=== PATIENT | male | born 1935 | race Caucasian/White ===

== ENCOUNTER 2017-03-06 01:35 | Day surgery (SDC) | payer MEDICARE, OTHER ==
[~2017-03-06] VITALS: Ht 170.2 cm; Wt 69.0 kg
[2017-03-06] VITALS (10 sets, daily range): BP systolic 128–159; BP diastolic 77–98; PULSE 61–70; RESP 13–16; O2SAT 96–98
[~2017-03-06 01:35] MED LIST: ALLO300T2 PO; ASPI-973 PO; INDA2.5T2 PO; LISI40TA PO; POTA10TA7 PO; SIMV10TA4 PO
[2017-03-06] MEDS ORDERED: EPHEDrine/NS 5 mg/mL 5 mL Syringe ONE (01:36)
[2017-03-06] MEDS ORDERED: Ondansetron 2 mg/mL 2 mL Inj ONE (01:36)
[2017-03-06] MEDS ORDERED: Glycopyrrolate 0.2 MG/ML 1mL Inj ONE (01:36)
[2017-03-06] MEDS ORDERED: Propofol 10,000 mCg/mL 20 mL Inj ONE (01:36)
[2017-03-06] MEDS ORDERED: Succinylcholine Chloride 20 mg/mL 5 mL Inj ONE (01:36)
[2017-03-06] MEDS ORDERED: Ketamine 10 mg/mL 20 mL Inj ONE (01:36)
[2017-03-06] MEDS ORDERED: Phenylephrine 10,000 mCg/mL Inj ONE (01:36)
[2017-03-06] MEDS ORDERED: fentaNYL-PF 50 mCg/mL 2 mL Inj ONE (01:36)
[2017-03-06] MEDS ORDERED: Glucagon 1 mg/mL Inj ONE ×3 (01:36)
[2017-03-06] MEDS ORDERED: Lactated Ringer's 1,000 ML IV ONE (06:00)
--- NOTE | 2017-03-06 13:55 | PCM.HPANE ---
Patient Data Date of Service: March 06, 2017 Surgeon Admitting Provider: Attending Provider:Hema Echeverria MD Primary Care Physician:Butch Saldana MD Other Provider:Martinez Thompson Anesthesia Reason for Visit K86.9 Pancreatic Mass Ht/WT & BMI Height (Feet): 5 Height (Inches): 7 Weight (Kilograms): 69 Body Mass Index 23.00 Allergies Coded Allergies: Penicillins (Verified Allergy, Severe, hives, 03/06/17) Past Anesthesia History Anesthesia History: Denies:: Abnormal Airway, Anesthesia Reactions, Difficult Intubation, Fam Anesthesia Reaction, Fam Malignant Hypertherm, Malignant Hyperthermia Diabetes History Hx Diabetes?: No MRSA MRSA: No Medications Blood Thinner: Aspirin Last Dose Blood Thinner: March 05, 2017 Hypertension Medication: Yes Home Meds Incl Beta Sydni: No Reported Medications Aspirin 81 Mg [id number] Mg PO DAILY Ref 0 02/26/16 Potassium Chloride ER (Klor-Con 10)10 Meq Gqjvsj86 Meq PO DAILY Ref 0 02/26/16 Simvastatin 10 Mg [id number] Mg PO HS Ref 0 02/26/16 Indapamide 2.5 Mg Tablet2.5 Mg PO DAILY #30 TABLET 02/26/16 Lisinopril 40 Mg Stnygh13 Mg PO DAILY 30 Days Ref 0 02/26/16 Allopurinol 300 Mg [id number] Mg PO DAILY Ref 0 02/26/16 History History of ENT Problems?: Yes HEENT History: Positive for:: Hearing Problem Denies:: Abnormal Airway Difficult Intubation Dysphagia Denture Type: None Teeth Condition: Within Normal Limits Hx of Heart Problems?: No Cardiovascular History: Positive for:: Atrial Fibrillation Hypertension Denies:: AICD Chest Pain Pacemaker Valvular Heart Disease Hx of Respiratory Problem?: No Respiratory History: Denies:: Asthma COPD Cough Hemoptysis Pneumonia Tuberculosis Hx Neurologic Problems?: No Neurological History: Denies:: CVA Hx of GI Problems?: Yes Hx of Problems?: Yes Other History/Comment Renal insufficiency - GFR 50s Hx Musculoskeletal Problems?: No Musculoskeletal History: Denies:: Joint Replacement Hx of Psycho/Social Problems?: No Psycho Social History: Denies:: Anxiety Hx Depression Hx Surgeries?: Yes (Bilat Ing Hernias, Prostate Ca, Lumbar Lami, Cataracts) Hx Any Other Health Problems?: No Hx Diabetes: No Hx Alcohol Use: No Smoking Status: Former Smoker Stop/Bang Treated for Sleep Apnea?: No S-Snoring: Do You Snore Loudly: No T-Tired: feel tired, fatigued: No O-Obsered: Observed not breath: No P-Blood Pressure: treated: Yes B- Body Mass Index > 35 kg/m2: No A- Age over 50: Yes N- Neck Large Circumference: No G- Gender Male: Yes FABIÁN Total Score: 3 FABIÁN Risk Assessment: Low Risk, <3 Yes Risk Assessment Category Category 1A: Patient has history of documented sleep apnea, and HAS NOT received any narcotic, sedative or anesthesia administration during this stay. Category 1B: Patient has history of documented sleep apnea, and HAS received any narcotic , sedative or anesthesia administration during this stay Category 2: Patient has SUSPECTED Obstructive Sleep Apnea, and HAS received any narcotic , sedative or anesthesia administration during this stay. Category 3: Patient has SUSPECTED Obstructive Sleep Apnea and HAS NOT received narcotic, sedative or anesthesia administration during this stay. Category 4: Outpatient in Procedural Areas with known sleep apnea or who screen positive for High Risk via the STOP/BANG questionnaire. Exam Exam Vital Signs Vital Signs Date Time Temp Pulse Resp B/P Pulse Ox O2 Delivery O2 Flow Rate FiO2 03/06/17 13:47 36.8 64 14 142/84 98 Room Air General Appearance: Alert, Oriented X3, Cooperative, No Acute Distress, Other ( Grossly jaundiced) HEENT/AIRWAY: MP 2 Lungs: Clear to Auscultation, Normal Air Movement Heart: Exam Unremarkable, Regular Rate/Rhythm, No Murmurs/Rubs/Gallops Plan Impression Patient chart reviewed, patient interviewed and anesthestic plan with risks, benefits, and alternatives discussed, and informed consent obtained. NPO per Anesth. Guidelines: Yes ASA Physical Status: ASA3 Severe Disease Anesthetic Plan: GA Bene/Risks/Altern/Consents: Yes HP Complete Prior to Induction: Yes Ron Parker MD March 06, 2017 13:55
[2017-03-06] MEDS ORDERED: Lactated Ringer's 1,000 ML IV SCH (15:44)
[2017-03-06] MEDS ORDERED: Lactated Ringer's 500 ML IV PRN (15:44)
--- NOTE | 2017-03-06 15:44 | PCM.ANEP1 ---
Post Anesthesia Phase 1 PACU Phase 1 Assessment Date of Service: March 06, 2017 Vital Signs 36.5 139/77 79 18 98% nc Anesthetic Administered: MAC Level of Alertness: Sleeping, hard to arouse OLIVO's with Equal Strength: Yes Pain: No Nausea or Vomiting: No Cardiovascular Function and Hy: Yes Oxygen Delivery: Nasal Cannula Lungs: Clear to Auscultation, Normal Air Movement Complications: No Follow up Care: No Patient Instructions Provided: Yes Ron Parker MD March 06, 2017 15:44
[2017-03-06] MEDS ORDERED: EPHEDrine Sulfate 50 mg/mL Inj IVPUSH PRN (15:45)
[2017-03-06] MEDS ORDERED: Phenylephrine 10,000 mCg/mL Inj IVPUSH PRN (15:45)
[2017-03-06] MEDS ORDERED: Labetalol 5 mg/mL 4 mL Inj IV PRN (15:45)
[2017-03-06] MEDS ORDERED: hydrALAZINE 20 mg/mL Inj IVPUSH PRN (15:45)
[2017-03-06] MEDS ORDERED: Ondansetron 2 mg/mL 2 mL Inj IVPUSH PRN (15:45)
[2017-03-06] MEDS ORDERED: MetoCLOpramide 5 mg/mL 2 mL Inj IVPUSH PRN (15:45)
[2017-03-06] MEDS ORDERED: HYDROmorphone 1 mg/mL Inj IVPUSH PRN (15:45)
[2017-03-06] MEDS ORDERED: Dexamethasone 4 mg/mL Inj IVPUSH PRN (15:45)
[2017-03-06] MEDS ORDERED: fentaNYL-PF 50 mCg/mL 2 mL Inj IVPUSH PRN (15:45)
[2017-03-06] MEDS ORDERED: Atropine 0.4 mg/mL Inj IVPUSH PRN (15:45)
--- NOTE | 2017-03-06 23:48 | ENDO ---
[address] [address] ENDOSCOPY PROCEDURE PATIENT: PAULETTE BOWLES : 1935 MR#: [id number] ADMIT: 03/06/2017 JOB ID: [id number] DATE OF PROCEDURE: PROCEDURE: Endoscopic retrograde cholangiopancreatography. 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 SEDATION: Please see Dr. Ron Parker's anesthesia report for details regarding ASA classification, Mallampati score and medications. Patient was placed under general anesthesia. INSTRUMENT USED: [id number] ERCP scope. PROCEDURE DETAILS: After informed consent was obtained, the patient was brought to the GI suite, where he was placed under general anesthesia. He was then placed in the standard ERCP position. The side-viewing duodenal scope was then introduced through the bite block and advanced without difficulty to the second portion of the duodenum. Luminal views from the esophagus to the second portion of duodenum were unremarkable. The ampulla was identified and was bulging. Using an Olympus CleverCut tome we attempted to cannulate the bile duct, however, we were unsuccessful. Despite multiple attempts, we were unable to gain entry either into the pancreatic duct or the bile duct. At this point, the procedure was aborted. IMPRESSION: Failed endoscopic retrograde cholangiopancreatography. RECOMMENDATIONS: Referral to [facility] for attempted ERCP and EUS for diagnosis and staging of pancreatic mass. This was discussed with the patient's in detail. IMMEDIATE COMPLICATIONS: None.
== END 2017-03-06 23:59 | disposition home or self-care (01) ==
LOC: END 01:35
PROVIDERS: ATTEND Internal Medicine Gastroenterology
DX: K83.1 Obstruction of bile duct (principal); K86.9 Disease of pancreas, unspecified; R74.0 Nonspecific elevation of levels of transaminase and lactic acid dehydrogenase [LDH]; I10 Essential (primary) hypertension; I48.91 Unspecified atrial fibrillation; Z85.46 Personal history of malignant neoplasm of prostate; Z87.891 Personal history of nicotine dependence; Z90.79 Acquired absence of other genital organ(s); Z86.010 Personal history of colon polyps; Z79.82 Long term (current) use of aspirin; Z53.8 Procedure and treatment not carried out for other reasons
CPT/HCPCS: 43260; 74328; J0330; J1610; J2370; J2405; J3010; Q9967